=== PATIENT | male | born 1940 | race Caucasian/White ===

== ENCOUNTER 2016-06-08 09:27 | Inpatient (IN) | payer MEDICARE, BC ==
[2016-06-08 10:21] LABS: APPEARANCE,URINE CLEAR; BILIRUBIN,URINE NEGATIVE (NEGATIVE); GLUCOSE, URINE NEGATIVE (NEGATIVE); KETONES,URINE NEGATIVE (NEGATIVE); LEUKOCYTE ESTERASE,URINE NEGATIVE (NEGATIVE); NITRITE,URINE NEGATIVE (NEGATIVE); PROTEIN,URINE 30 mg/dL (NEGATIVE); URINE SPECIFIC GRAVITY 1.024; UROBILINOGEN,URINE NEGATIVE mg/dL (<2.0)
[2016-06-08] MEDS ORDERED: NORMAL SALINE 1000 ML 1,000 ML IV ONE (10:37)
[2016-06-08] MEDS ORDERED: PANTOPRAZOLE SODIUM 40 MG VIAL IV ONE (10:37)
[2016-06-08] MEDS ORDERED: PANTOPRAZOLE SODIUM 40 MG VIAL IV PRN ×2 (10:38→13:10)
--- NOTE | 2016-06-08 10:41 | ER Document Report ---
ED General - General Chief Complaint: Bloody Stools Stated Complaint: BLOOD IN STOOL Time seen by provider: 10:39 Mode of Arrival: Ambulatory Information source: Patient Notes: 75-year-old male with 4 episodes of bright red and dark red rectal bleeding this morning. Patient reports he had a sensation of abdominal cramping and fullness in the epigastric area yesterday afternoon followed by nausea and dry heaves but denies any hematemesis or melena. Patient reports history of GI bleed last year which required admission support for laparotomy what sounds like repair gastric ulcer he also gallbladder removed at that time. He reports history of atrial fibrillation and has pacemaker placement says he is on no anticoagulation now. He denies alcohol use or nonsteroidal use. He reports a sensation dizziness and lightheadedness with standing this morning Physical Exam: General: Alert, appears well. HEENT: Normocephalic. Atraumatic. PERRLA. Extraocular movements intact. Oropharynx clear. Neck: Supple. Non-tender. Respiratory: No respiratory distress. Clear and equal breath sounds bilaterally. Cardiovascular: Regular rate and rhythm. Abdominal: Normal Inspection. Soft, non-tender. No distension. Normal Bowel Sounds. Rectal exam shows no hemorrhoids or fissures Back: Non-tender. No deformity or step off. Extremities: Moves all four extremities. Upper extremities: Normal inspection. Non-tender. Normal color. Normal ROM. Normal temperature. Lower extremities: Normal inspection. Non-tender. No edema. Normal color. Normal ROM. Normal temperature. 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 Normal Mood. Skin: Warm. Dry. Normal color. TRAVEL OUTSIDE OF THE [place] IN LAST 30 DAYS: No - Related Data Allergies/Adverse Reactions: No Known Allergies Allergy (Verified 12/02/15 17:13) Past Medical History - Social History Smoking Status: Former Smoker Family History: Hypertension - Past Medical History Cardiac Medical History: Reports: Hx Atrial Fibrillation, Hx Coronary Artery Disease, Hx Heart Attack, Hx Hypercholesterolemia, Hx Heart Murmur - Mitral regurgitation Denies: Hx Hypertension Pulmonary Medical History: Reports: Hx COPD Denies: Hx Asthma, Hx Bronchitis, Hx Pneumonia Neurological Medical History: Reports: Hx Cerebrovascular Accident - INTERNAL BLEED IN 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 Denies: Hx Seizures GI Medical History: Denies: Hx Hepatitis, Hx Hiatal Hernia, Hx Ulcer Musculoskeltal Medical History: Reports Hx Arthritis, Reports Hx Gout Infectious Medical History: Denies: Hx Hepatitis Past Surgical History: Reports: Hx Abdominal Surgery - peg, Hx Cardiac Surgery - pacer, Hx Gastric Bypass Surgery, Hx Orthopedic Surgery - knee, Hx Tonsillectomy. Denies: Hx Open Heart Surgery, Hx Pacemaker - Immunizations Hx Diphtheria, Pertussis, Tetanus Vaccination: Yes Hx Pneumococcal Vaccination: 04/18/15 Review of Systems - Review of Systems Constitutional: denies: Chills, Fever EENT: denies: Ear pain, Throat pain Cardiovascular: denies: Chest pain, Dyspnea Respiratory: denies: Cough, Short of breath Gastrointestinal: See HPI Genitourinary: denies: Burning, Dysuria Musculoskeletal: denies: Back pain, Muscle pain Skin: denies: Rash Hematologic/Lymphatic: denies: Swollen glands Neurological/Psychological: denies: Weakness, Numbness Physical Exam - Vital signs Vitals: Temp Pulse Resp BP Pulse Ox 97.4 F 81 16 98/59 L 97 06/08/16 09:33 06/08/16 09:33 06/08/16 09:33 06/08/16 09:33 06/08/16 09:33 Course - Re-evaluation Re-evalutation: 06/08/16 11:51 Patient remains hemodynamically stable during his stay in emergency department he has had no abdominal pain, vomiting, chest pain, or shortness of breath. Patient started on IV per tonics and IV fluids but does not require transfusion now. GI coverage is available. Have discussed case with Dr. Pichardo hospitalist internal medicine service for admission - Vital Signs Vital signs: Temp Pulse Resp BP Pulse Ox 97.4 F 81 23 H 108/79 98 06/08/16 09:33 06/08/16 09:33 06/08/16 11:01 06/08/16 11:01 06/08/16 10:31 - Laboratory Result Diagrams: 06/08/16 10:20 06/08/16 10:20 Laboratory results interpreted by me: 06/08/16 06/08/16 06/08/16 09:53 10:20 10:20 RBC 4.25 L Hgb 12.4 L RDW 16.5 H Seg Neutrophils % 79.8 H Absolute Neutrophils 8.3 H PT Potassium 5.2 H BUN 50 H Creatinine 1.42 H Est GFR ( Amer) 59 L Est GFR (Non-Af Amer) 48 L Glucose 175 H Urine Protein 30 H 06/08/16 10:20 RBC Hgb RDW Seg Neutrophils % Absolute Neutrophils PT 15.8 H Potassium BUN Creatinine Est GFR ( Amer) Est GFR (Non-Af Amer) Glucose Urine Protein - Diagnostic Test Radiology reviewed: Image reviewed, Reports reviewed - EKG Interpretation by Me Additional EKG results interpreted by me: 06/08/16 11:49 EKG reviewed by myself shows atrial fibrillation at a ventricular rate of 72 with inverted T waves in lead 1L and V2 through V5 similar in morphology to . Patient also has occasional electronic ventricular paced beats Discharge - Discharge Clinical Impression: GI bleed Qualifiers: GI bleed type/associated pathology: melena Qualified Code(s): K92.1 - Melena Condition: Fair Disposition: ADMITTED INPATIENT Unit Admitted: Medical Floor
[2016-06-08 10:48] LABS: ABSOLUTE LYMPHOCYTES (AUTO) 1.5 10^3/uL (0.5-4.7); ABSOLUTE MONOCYTES (AUTO) 0.6 10^3/uL (0.1-1.4); ABSOLUTE NEUT (AUTO) 8.3 10^3/uL (1.7-8.2); BASOPHILS % (AUTO) 0.3 % (0-2); EOSINOPHILS % (AUTO) 0.1 % (0-6); HEMATOCRIT 37.9 % (37.9-51.0); HEMOGLOBIN 12.4 g/dL (13.5-17.0); HGB HCT DIFFERENCE -0.7; LYMPHOCYTES % (AUTO) 14.2 % (13-45); MEAN CORPUSCULAR HEMOGLOBIN 29.3 pg (27.0-33.4); MEAN CORPUSCULAR HGB CONC 32.8 g/dL (32.0-36.0); MEAN CORPUSCULAR VOLUME 89 fl (80-97); MONOCYTES % (AUTO) 5.6 % (3-13); RED BLOOD COUNT 4.25 10^6/uL (4.35-5.55); RED CELL DISTRIBUTION WIDTH 16.5 % (11.5-14.0); SEGMENTED NEUTROPHILS % (AUTO) 79.8 % (42-78); WHITE BLOOD COUNT 10.4 10^3/uL (4.0-10.5)
[2016-06-08 11:00] LABS: PROTHROMBIN TIME 15.8 SEC (11.4-15.4)
[2016-06-08 11:01] LABS: ALANINE AMINOTRANSFERASE 28 U/L (21-72); ALBUMIN 3.5 g/dL (3.5-5.0); ALKALINE PHOSPHATASE 104 U/L (38-126); ANION GAP 14 (5-19); ASPARTATE AMINO TRANSFERASE 23 U/L (17-59); BILIRUBIN,TOTAL 1.2 mg/dL (0.2-1.3); BLOOD UREA NITROGEN 50 mg/dL (7-20); CALCIUM 9.3 mg/dL (8.4-10.2); CARBON DIOXIDE 22 mmol/L (22-30); CHLORIDE 105 mmol/L (98-107); CREATININE RESULT 1.42 mg/dL (0.52-1.25); GLUCOSE 175 mg/dL (75-110); PARTIAL THROMBOPLASTIN TIME 29.8 SEC (23.5-35.8); POTASSIUM 5.2 mmol/L (3.6-5.0); SODIUM 141.2 mmol/L (137-145); TOTAL PROTEIN 6.6 g/dL (6.3-8.2)
[2016-06-08 11:02] LABS: MAGNESIUM 1.9 mg/dL (1.6-2.3)
--- NOTE | 2016-06-08 12:02 | EKG REPORT ---
SEVERITY:- ABNORMAL ECG - AFIB/FLUT AND V-PACED COMPLEXES NONSPECIFIC IVCD WITH LAD : Confirmed by: Lakisha Cannon MD 08-Jun-2016 12:01:50
[2016-06-08] MEDS ORDERED: ACETAMINOPHEN 325 MG TABLET PO PRN (12:59)
[2016-06-08] MEDS ORDERED: ONDANSETRON HCL INJ/PF 4 MG/2 ML SDV IV PRN (13:04)
[2016-06-08] MEDS: RINGERS SOLUTION,LACTATED 1,000 ML IV PRN ×2 (14:20→22:39)
--- NOTE | 2016-06-08 14:22 | PDOC CONSULTATION ---
Consultation Consult Date: 06/08/16 Attending physician:: GEMINI RIOJAS Consult reason:: GI bleed. History of Present Illness Admission Date/PCP: GEOVANY STRATTON MD History of Present Illness: OTTO TAYLOR is a 75 year old male I been asked to see this patient has been admitted through the ED. I did see him approximately 2 months ago. At that time he had an upper endoscopy done. Small anastomotic ulcer was noted. He was subsequently discharged. 2 months prior to that he had been seen by one of the surgeons. Repeat EGD was done. He 's had a gastric bypass. states that he presented with some blood in his stools. He describes it as being dark red. He denies any associated syncope. His hemoglobin is stable. He is being admitted to rule out for further GI bleeding. Patient denies any chest pain or shortness of breath. Previous upper endoscopy findings noted. He states he has not had a recent colonoscopy. Past Medical History Cardiac Medical History: Reports: Atrial Fibrillation, Coronary Artery Disease, Myocardial Infarction, Hyperlipidema, Heart Murmur - Mitral regurgitation Denies: Hypertension Pulmonary Medical History: Reports: Chronic Obstructive Pulmonary Disease (COPD) Denies: Asthma, Bronchitis, Pneumonia Neurological Medical History: Denies: Seizures GI Medical History: Denies: Hepatitis, Hiatal Hernia Musculoskeltal Medical History: Reports: Arthritis, Gout Hematology: Denies: Anemia, Sickle Cell Disease Past Surgical History Past Surgical History: Reports: Gastric Bypass Surgery, Orthopedic Surgery - knee, Tonsillectomy Denies: Pacemaker Social History Smoking Status: Former Smoker Frequency of Alcohol Use: None Hx Recreational Drug Use: No Drugs: None Hx Prescription Drug Abuse: No Family History Family History: Hypertension Parental Family History Reviewed: Yes Children Family History Reviewed: Unknown Sibling(s) Family History Reviewed.: Unknown Medication/Allergy Home Medications: Fluoxetine HCl [Prozac 20 mg Capsule] 10 mg PO DAILY 05/18/12 Simvastatin [Zocor 80 mg Tablet] 40 mg PO QHS 05/18/12 Finasteride 5 mg PO DAILY 12/04/15 Metoprolol Succinate [Toprol Xl] 25 mg PO DAILY 12/04/15 Colchicine [Colchicine 0.6 mg Tablet] 1 tab PO DAILY 01/24/16 Ferrous Sulfate [Iron] 325 mg PO DAILY 06/08/16 Omeprazole 40 mg PO DAILY 06/08/16 Allergies/Adverse Reactions: No Known Allergies Allergy (Verified 12/02/15 17:13) Review of Systems Constitutional: ABSENT: fever(s), headache(s), night sweats, weakness Eyes: ABSENT: visual disturbances Ears: ABSENT: hearing changes Nose, Mouth, and Throat: ABSENT: mouth pain Cardiovascular: ABSENT: chest pain, orthropnea, palpitations Respiratory: ABSENT: dyspnea, hemoptysis Gastrointestinal: PRESENT: hematochezia, melena. ABSENT: diarrhea, dysphagia, nausea, vomiting Genitourinary: ABSENT: dysuria, hematuria Musculoskeletal: ABSENT: deformity Integumentary: ABSENT: lesions, pruritus Neurological: ABSENT: numbness, paresthesias, syncope, tingling, tremor(s), vertigo Endocrine: ABSENT: polydipsia, polyphagia, polyuria Allergic/Immunologic: ABSENT: seasonal rhinorrhea Physical Exam Vital Signs: Temp Pulse Resp BP Pulse Ox 97.4 F 81 21 H 117/72 98 06/08/16 09:33 06/08/16 09:33 06/08/16 14:01 06/08/16 14:01 06/08/16 14:01 Intake & Output 06/07/16 06/08/16 06/09/16 06:59 06:59 06:59 Weight 63.6 kg General appearance: PRESENT: no acute distress, well-developed, well-nourished Head exam: PRESENT: atraumatic, normocephalic Eye exam: PRESENT: EOMI, PERRLA. ABSENT: nystagmus, periorbital swelling, scleral icterus Mouth exam: PRESENT: moist Throat exam: ABSENT: tonsillar exudate, tonsillogmegaly Neck exam: ABSENT: meningismus, tenderness, thyromegaly Respiratory exam: PRESENT: clear to auscultation ayanna, symmetrical. ABSENT: tachypnea Cardiovascular exam: PRESENT: RRR, +S1, +S2. ABSENT: gallop GI/Abdominal exam: PRESENT: soft. ABSENT: Lucero's sign, rebound, rigid, tenderness Extremities exam: ABSENT: joint swelling Neurological exam: PRESENT: alert, awake, oriented to time, oriented to situation, CN II-XII grossly intact Psychiatric exam: PRESENT: appropriate affect Skin exam: PRESENT: normal color. ABSENT: mottled, pallor, petechiae, urticaria , vesicles Results Laboratory Results: 06/08/16 10:20 06/08/16 10:20 06/08/16 06/08/16 06/08/16 09:53 10:00 10:20 WBC 10.4 RBC 4.25 L Hgb 12.4 L Hct 37.9 MCV 89 MCH 29.3 MCHC 32.8 RDW 16.5 H Plt Count 191 Seg Neutrophils % 79.8 H Lymphocytes % 14.2 Monocytes % 5.6 Eosinophils % 0.1 Basophils % 0.3 Absolute Neutrophils 8.3 H Absolute Lymphocytes 1.5 Absolute Monocytes 0.6 Absolute Eosinophils 0.0 Absolute Basophils 0.0 Sodium Potassium Chloride Carbon Dioxide Anion Gap BUN Creatinine Est GFR ( Amer) Est GFR (Non-Af Amer) Glucose Calcium Magnesium Total Bilirubin AST ALT Alkaline Phosphatase Total Protein Albumin Lipase Urine Color YELLOW Urine Appearance CLEAR Urine pH 5.0 Ur Specific [place] 1.024 Urine Protein 30 H Urine Glucose (UA) NEGATIVE Urine Ketones NEGATIVE Urine Blood NEGATIVE Urine Nitrite NEGATIVE Ur Leukocyte Esterase NEGATIVE Urine WBC (Auto) 1 Stool Occult Blood POSITIVE Blood Type Antibody Screen 06/08/16 06/08/16 06/08/16 10:20 10:20 10:26 WBC RBC Hgb Hct MCV MCH MCHC RDW Plt Count Seg Neutrophils % Lymphocytes % Monocytes % Eosinophils % Basophils % Absolute Neutrophils Absolute Lymphocytes Absolute Monocytes Absolute Eosinophils Absolute Basophils Sodium 141.2 Potassium 5.2 H Chloride 105 Carbon Dioxide 22 Anion Gap 14 BUN 50 H Creatinine 1.42 H Est GFR ( Amer) 59 L Est GFR (Non-Af Amer) 48 L Glucose 175 H Calcium 9.3 Magnesium 1.9 Total Bilirubin 1.2 AST 23 ALT 28 Alkaline Phosphatase 104 Total Protein 6.6 Albumin 3.5 Lipase 193.0 Urine Color Urine Appearance Urine pH Ur Specific [place] Urine Protein Urine Glucose (UA) Urine Ketones Urine Blood Urine Nitrite Ur Leukocyte Esterase Urine WBC (Auto) Stool Occult Blood Blood Type O POSITIVE Antibody Screen NEGATIVE Impressions: Acute Abdomen Series 06/08/16 10:36 IMPRESSION: No acute cardiopulmonary changes No subdiaphragmatic free air. Prior cholecystectomy and gastric bypass. Few borderline distended small bowel loops in the mid and lower abdomen, nonspecific bowel gas pattern Assessment & Plan - Diagnosis (1) GI bleed Plan: Question location of bleeding. Previous ulcers that were noted likely cannot contribute to the patient's degree of bleeding. His hemoglobin is stable. However colonoscopy is probably worthwhile to do. Risks benefits alternatives of the procedure including risks of bleeding, perforation requiring surgery I explained to the patient detail informed consent was obtained further recommendations will be based upon findings. The other possible location of the bleed is needed stomach. Start him on a PPI. If colonoscopy is negative doesn't perhaps repeat upper endoscopy can be done with perhaps advancement of the scope to the [place] stomach through the gastrojejunostomy but this may not be possible. - Time Time Spent: 50 to 70 Minutes
[2016-06-08] MEDS ORDERED: MAGNESIUM CITRATE 296 ML BOTTLE PO ONE (15:00)
[2016-06-08] MEDS ORDERED: BISACODYL 5 MG TABEC PO ONE (15:00)
--- NOTE | 2016-06-08 18:05 | PDOC H&P ---
History of Present Illness Admission Date/PCP: 06/08/16 12:59 GEOVANY STRATTON MD Patient complains of: Bloody stools History of Present Illness: Presents to the emergency department from home with sudden onset of bloody stools starting during the night and continuing with operative 5 stools of bright red blood and some formed elements as well. It all started yesterday with some epigastric discomfort described as pressure and bloating just below the xiphoid process. He denies heartburn-like symptoms. He denies chest pain or palpitations. He does not take aspirin or other NSAIDs due to history of an intracranial hemorrhage. He denies BC powders and Goody's powders. He reports being in his usual state of health prior to this episode. He has a history of Lizeth-en-Y surgery in 2006 for weight loss that was successful. However since that time he has had evidence of peptic ulcer disease and required surgical intervention as well as endoscopic intervention on previous occasions in 2016. He has previously required transfusion of packed red blood cells as a result. He cannot remember his last colonoscopy but states his last endoscopy was during one of those hospitalizations in the fall of 2016. Evaluation in the emergency department shows hemoglobin stable at 12 hour he is rapidly guaiac positive and grossly melanotic on rectal exam per the ER physician. Given his history we were asked to admit for further investigation and management. 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 Denies: Seizures GI Medical History: Denies: Hepatitis, Hiatal Hernia Musculoskeltal Medical History: Reports: Arthritis, Gout Psychiatric Medical History: Denies: Depression Hematology: Denies: Anemia, Sickle Cell Disease Past Surgical History Past Surgical History: Reports: Appendectomy, Cholecystectomy, Gastric Bypass Surgery, Orthopedic Surgery - knee, Tonsillectomy Denies: Pacemaker Social History Smoking Status: Former Smoker Number of Years Smokin Last Time Smoked: 04/18/80 Frequency of Alcohol Use: None Hx Recreational Drug Use: No Drugs: None Hx Prescription Drug Abuse: No - Advance Directive Resuscitation Status: Full Code Family History Family History: Hypertension Parental Family History Reviewed: Yes Children Family History Reviewed: Yes Sibling(s) Family History Reviewed.: Yes Medication/Allergy Home Medications: Fluoxetine HCl [Prozac 20 mg Capsule] 10 mg PO DAILY 05/18/12 Simvastatin [Zocor 80 mg Tablet] 40 mg PO QHS 05/18/12 Finasteride 5 mg PO DAILY 12/04/15 Metoprolol Succinate [Toprol Xl] 25 mg PO DAILY 12/04/15 Colchicine [Colchicine 0.6 mg Tablet] 1 tab PO DAILY 01/24/16 Ferrous Sulfate [Iron] 325 mg PO DAILY 06/08/16 Omeprazole 40 mg PO DAILY 06/08/16 Allergies/Adverse Reactions: No Known Allergies Allergy (Verified 12/02/15 17:13) Review of Systems Constitutional: ABSENT: chills, fever(s), headache(s), weight gain, weight loss Eyes: ABSENT: visual disturbances Ears: ABSENT: hearing changes Cardiovascular: ABSENT: chest pain, dyspnea on exertion, edema, orthropnea, palpitations Respiratory: ABSENT: cough, hemoptysis Gastrointestinal: PRESENT: diarrhea, hematochezia. ABSENT: abdominal pain, constipation, hematemesis, nausea, vomiting Genitourinary: ABSENT: dysuria, hematuria Musculoskeletal: ABSENT: joint swelling Integumentary: ABSENT: rash, wounds Neurological: ABSENT: abnormal gait, abnormal speech, confusion, dizziness, focal weakness, syncope Psychiatric: ABSENT: anxiety, depression Endocrine: ABSENT: cold intolerance, heat intolerance, polydipsia, polyuria Hematologic/Lymphatic: ABSENT: easy bleeding, easy bruising Physical Exam Vital Signs: Temp Pulse Resp BP Pulse Ox 98.5 F 81 18 109/65 100 06/08/16 15:48 06/08/16 15:48 06/08/16 15:48 06/08/16 15:48 06/08/16 15:48 Intake & Output 06/07/16 06/08/16 06/09/16 06:59 06:59 06:59 Intake Total 1115 Balance 1115 PHYSICAL EXAM GENERAL: NAD; well developed, well nourished; no obese; alert and oriented to person, place, time, situation HEENT: normocephalic, atraumatic; EOMI, PERRLA, no conjunctival injection, no scleral icterus; oral mucosa dry with a thin white coat; neck supple, no LAD, normal ROM RESPIRATORY: no accessory muscle use, no increased WOB, good air entry bilaterally; no wheezes, rales, rhonchi; no inspiratory crackles CARDIO: no JVD; irregularly irregular; soft holosystolic murmur; no tachycardia VASCULAR: no carotid bruit; no abdominal bruit; no pallor; 2+ radial, DP pulse ; normal capillary refill GI: soft; nondistended; normal bowel sounds; no hepato spleno megaly; no rebound, rigidity, guarding; nontender to deep palpation throughout all 4 quadrants NEURO: normal patella reflexes; normal sensation; normal motor function; no gait abnls; no dysarthria; no nystagmus; tongue protrudes midline; MSK: 5/5 strength; normal ROM hips; ambulatory without assistance; no tenderness EXTREMITIES: no calf tender; no palpable cords in calf; no clubbing, cyanosis , pedal edema PSYCH: normal affect, normal mood SKIN: warm; moist; no petechiae; no telengectasias; no jaundice; no rash Results Laboratory Results: Labs reviewed, hemoglobin stable at 12, INR is normal at 1.2, chemistries show mild elevation of his potassium of 5.2 and BUN and creatinine 50 and 1.4 Impressions: Acute Abdomen Series 06/08/16 10:36 IMPRESSION: No acute cardiopulmonary changes No subdiaphragmatic free air. Prior cholecystectomy and gastric bypass. Few borderline distended small bowel loops in the mid and lower abdomen, nonspecific bowel gas pattern Status: Imported from PACS - Agree with radiology Assessment & Plan - Diagnosis (1) GI bleed Qualifiers: GI bleed type/associated pathology: unspecified gastrointestinal hemorrhage type Qualified Code(s): K92.2 - Gastrointestinal hemorrhage, unspecified Is this a current diagnosis for this admission?: YesPlan: Unclear etiology, given his history is clearly at risk for upper GI bleed however he also has not undergone colonoscopy and recent history and therefore at risk for diverticular bleed. Continue PPI therapy started in the emergency department, continue to trend H&H, I discussed the case with Dr. Bruce, gastroenterology will see in consultation. (2) Acute renal insufficiency Is this a current diagnosis for this admission?: YesPlan: Gently hydrate and monitor. He is not far off from his baseline which appears to be around 1.3 (3) Atrial fibrillation Qualifiers: Atrial fibrillation type: chronic Qualified Code(s): I48.2 - Chronic atrial fibrillation Is this a current diagnosis for this admission?: YesPlan: Rate controlled, continue current regimen. Hold anticoagulation due to history of intracranial hemorrhage and current GI bleed (4) Anemia Qualifiers: Anemia type: iron deficiency Iron deficiency anemia type: unspecified iron deficiency Qualified Code(s): D50.9 - Iron deficiency anemia, unspecified Is this a current diagnosis for this admission?: YesPlan: Risk and benefits of transfusion were described with the patient and he is agreeable to blood products if needed. He has tolerated transfusion in the past without evidence of reaction. (5) Coronary artery disease Qualifiers: Coronary Disease-Associated Artery/Lesion type: [place] artery [place] vs. transplanted heart: [place] heart Associated angina: without angina Qualified Code(s): I25.10 - Atherosclerotic heart disease of [place] coronary artery without angina pectoris Is this a current diagnosis for this admission?: YesPlan: Stable. Continue current regimen. Holding antiplatelet therapy for the reasons noted above. (6) Hyperkalemia Is this a current diagnosis for this admission?: YesPlan: Mild and chronic. Continue to monitor - Time Time Spent: Greater than 70 Minutes Medications reviewed and adjusted accordingly: Yes Anticipated discharge: Home Within: within 48 hours - Inpatient Certification Medical Necessity: Significant Comorbidiites Make Outpatient Treatment Too Risky , Need Close Monitoring Due to Risk of Patient Decompensation
[2016-06-08 18:51] LABS: HEMATOCRIT 31.5 % (37.9-51.0); HEMOGLOBIN 10.6 g/dL (13.5-17.0); HGB HCT DIFFERENCE 0.3; MEAN CORPUSCULAR HEMOGLOBIN 29.8 pg (27.0-33.4); MEAN CORPUSCULAR HGB CONC 33.7 g/dL (32.0-36.0); MEAN CORPUSCULAR VOLUME 88 fl (80-97); RED BLOOD COUNT 3.57 10^6/uL (4.35-5.55); RED CELL DISTRIBUTION WIDTH 16.1 % (11.5-14.0); WHITE BLOOD COUNT 9.7 10^3/uL (4.0-10.5)
[2016-06-08] MEDS ORDERED: (PENDING PHARMACY ID) (Simvastatin [Zocor 80 Mg Tablet] 40 MG) PO SCH (22:00)
[2016-06-08] MEDS: SIMVASTATIN 40 MG TABLET PO SCH (22:38)
[2016-06-08] MEDS: NORMAL SALINE 100 ML with PANTOPRAZOLE SODIUM 80 MG IV PRN ×2 (22:38)
[2016-06-09 00:25] LABS: HEMOGLOBIN 9.8 g/dL (13.5-17.0); HGB HCT DIFFERENCE 1.4; MEAN CORPUSCULAR HEMOGLOBIN 30.6 pg (27.0-33.4); MEAN CORPUSCULAR VOLUME 88 fl (80-97); RED CELL DISTRIBUTION WIDTH 15.9 % (11.5-14.0); WHITE BLOOD COUNT 9.4 10^3/uL (4.0-10.5)
[2016-06-09] MEDS: RINGERS SOLUTION,LACTATED 1,000 ML IV PRN ×2 (05:16→11:57)
[2016-06-09] MEDS: NORMAL SALINE 100 ML with PANTOPRAZOLE SODIUM 80 MG IV PRN ×2 (07:41)
[2016-06-09] MEDS ORDERED: MAGNESIUM CITRATE 296 ML BOTTLE PO ONE (08:30)
[2016-06-09 08:56] LABS: HEMATOCRIT 25.8 % (37.9-51.0); HGB HCT DIFFERENCE 1.2; MEAN CORPUSCULAR HEMOGLOBIN 30.4 pg (27.0-33.4); MEAN CORPUSCULAR HGB CONC 34.8 g/dL (32.0-36.0); MEAN CORPUSCULAR VOLUME 88 fl (80-97); RED BLOOD COUNT 2.95 10^6/uL (4.35-5.55); RED CELL DISTRIBUTION WIDTH 15.5 % (11.5-14.0); WHITE BLOOD COUNT 7.6 10^3/uL (4.0-10.5)
[2016-06-09] MEDS ORDERED: METOPROLOL SUCCINATE 25 MG TAB.SR.24H PO SCH (10:00)
[2016-06-09] MEDS ORDERED: FLUOXETINE HCL 20 MG CAPSULE PO SCH (10:00)
[2016-06-09] MEDS ORDERED: ONDANSETRON HCL INJ/PF 4 MG/2 ML SDV ONE (11:48)
[2016-06-09] MEDS ORDERED: MIDAZOLAM 2 MG/2 ML INJ ONE (11:48)
[2016-06-09] MEDS ORDERED: PROMETHAZINE HCL INJ 25 MG/1 ML VIAL ONE (11:48)
[2016-06-09] MEDS ORDERED: NALOXONE HCL INJ/PF 0.4 MG/1 ML SDV ONE (11:48)
[2016-06-09] MEDS ORDERED: DIPHENHYDRAMINE HCL 50 MG/ML VIAL ONE (11:48)
[2016-06-09] MEDS ORDERED: FENTANYL CITRATE INJ/PF 100 MCG/2 ML AMPUL ONE (11:49)
[2016-06-09] MEDS ORDERED: GLUCAGON,HUMAN RECOMB 1 MG INJ ONE (11:49)
[2016-06-09] MEDS ORDERED: FLUMAZENIL INJ 0.5 MG/5 ML VIAL IV ONE (11:49)
[2016-06-09] MEDS ORDERED: EPINEPHRINE INJ 1 MG/10 ML DISP.SYRIN ONE (11:49)
--- NOTE | 2016-06-09 12:51 | Operative Report ---
Operative Report DATE OF SURGERY: 06/09/16 Operative Report: The risks, and if it's and alternatives of the procedure including risks of bleeding, perforation requiring surgery are explained to the patient in detail and informed consent is obtained. The patient is brought to the endoscopy suite and placed in a left, lateral decubital position. Timeout is called. Conscious sedation medications administered. A rectal examination was done which did not reveal any masses, tears or fissures. An Olympus videoscope was inserted into the patient's rectum. It Really advanced all the way to the cecum. The cecum was identified by the usual anatomical landmarks including the ileocecal valve as well as the appendiceal office. Photodocumentation is obtained. Prep is good. Scope was then sequentially pulled back creative rest segments of the colon including the ascending colon, hepatic flexure, transverse colon, splenic flexure, descending colon and finally into the rectosigmoid colon. Mucosa does otherwise appeared to be normal. Retroflexion maneuvers performed. PREOPERATIVE DIAGNOSIS: has had a gastrojejunostomy bypass in the past. His upper endoscopy 2 months ago revealed a small anastomotic ulcer. Patient was complaining of some rectal bleeding. A colonoscopy is indicated to make sure there is no lower source of bleeding. POSTOPERATIVE DIAGNOSIS: Diverticulosis. Internal hemorrhoids. Polyp is removed via biopsy forceps. Could've had limited diverticular bleeding. If patient continues to bleed a bleeding scan can be done to determine if he is bleeding from the anastomosis versus the [place] stomach which has been bypassed. Patient does have both left and right sided diverticulosis which could probably explain the reason for why he had bleeding. OPERATION: Colonoscopy with biopsy SURGEON: GEMINI RIOJAS ANESTHESIA: Moderate Sedation - 2 mg Versed, 25 g of fentanyl. Conscious sedation monitoring time 30 minutes. TISSUE REMOVED OR ALTERED: Small Specimen retrieved. Following biopsy. COMPLICATIONS: None. ESTIMATED BLOOD LOSS: none. INTRAOPERATIVE FINDINGS: As noted above. PROCEDURE: Patient tolerated the procedure well. No immediate postprocedure complications are noted. Patient sent back to his room in good condition. He can resume his diet. Resume activity level. Continue to monitor for bleeding. Transfuse if necessary. No further bleeding would consider bleeding scan. Differential would include diverticular bleeding, or perhaps bleeding from the [place] portion of the stomach, and has been bypass.
--- NOTE | 2016-06-09 14:38 | PDOC PROGRESS REPORT ---
Subjective Progress Note for:: 06/09/16 Subjective:: Reason for visit: Follow-up GI bleed Hospital course: Presents to the emergency department from home with sudden onset of bloody stools starting during the night and continuing with operative 5 stools of bright red blood and some formed elements as well. It all started yesterday with some epigastric discomfort described as pressure and bloating just below the xiphoid process. He denies heartburn-like symptoms. He denies chest pain or palpitations. He does not take aspirin or other NSAIDs due to history of an intracranial hemorrhage. He denies BC powders and Goody's powders. He reports being in his usual state of health prior to this episode. He has a history of Lizeth-en-Y surgery in 2006 for weight loss that was successful. However since that time he has had evidence of peptic ulcer disease and required surgical intervention as well as endoscopic intervention on previous occasions in 2016. He has previously required transfusion of packed red blood cells as a result. He cannot remember his last colonoscopy but states his last endoscopy was during one of those hospitalizations in the fall of 2015. Evaluation in the emergency department shows hemoglobin stable at 12 hour he is rapidly guaiac positive and grossly melanotic on rectal exam per the ER physician. Given his history we were asked to admit for further investigation and management. The patient seemed well but has trended down since admission over 3 g but interestingly he states his stools are firming up and not bright red blood anymore. Furthermore he states he's had no recurrence of his epigastric discomfort. He denies chest pain, palpitations, fever, chills, nausea, vomiting , hematemesis. ROS: per HPI plus a total of 10 systems reviewed, pertinent positives and negatives noted above, remaining systems negative. Physical Exam Vital Signs: Temp Pulse Resp BP Pulse Ox 98.0 F 67 11 L 95/46 L 97 06/09/16 11:22 06/09/16 13:00 06/09/16 13:00 06/09/16 13:00 06/09/16 13:00 Intake & Output 06/08/16 06/09/16 06/10/16 06:59 06:59 06:59 Intake Total 2361 300 Balance 2361 300 Weight 64.6 kg PHYSICAL EXAM GENERAL: NAD; well developed, well nourished; no obese; alert and oriented to person, place, time, situation HEENT: normocephalic, atraumatic; no conjunctival injection, no scleral icterus ; oral mucosa dry with a thin white coat; RESPIRATORY: no accessory muscle use, no increased WOB, good air entry bilaterally; no wheezes, rales, rhonchi; no inspiratory crackles CARDIO: no JVD; irregularly irregular; soft holosystolic murmur as before; no tachycardia VASCULAR: no carotid bruit; no abdominal bruit; no pallor; 2+ radial, DP pulse ; normal capillary refill GI: soft; nondistended; normal bowel sounds; no hepato spleno megaly; no rebound, rigidity, guarding; nontender to deep palpation throughout all 4 quadrants again NEURO: normal patella reflexes; normal sensation; normal motor function; MSK: 5/5 strength; normal ROM hips; ambulatory without assistance; no tenderness EXTREMITIES: no calf tender; no palpable cords in calf; no clubbing, cyanosis , pedal edema PSYCH: normal affect, normal mood SKIN: warm; moist; no petechiae; no telengectasias; no jaundice; no rash Results Laboratory Results: 06/09/16 08:36 06/08/16 06/09/16 06/09/16 18:45 00:17 08:36 WBC 9.7 9.4 7.6 RBC 3.57 L 3.20 L 2.95 L Hgb 10.6 L 9.8 L 9.0 L Hct 31.5 L 28.0 L 25.8 L MCV 88 88 88 MCH 29.8 30.6 30.4 MCHC 33.7 35.0 34.8 RDW 16.1 H 15.9 H 15.5 H Plt Count 153 150 135 L Labs reviewed and hemoglobin is trending down Assessment & Plan - Diagnosis (1) GI bleed Qualifiers: GI bleed type/associated pathology: unspecified gastrointestinal hemorrhage type Qualified Code(s): K92.2 - Gastrointestinal hemorrhage, unspecified Is this a current diagnosis for this admission?: YesPlan: Unclear etiology, given his history is clearly at risk for upper GI bleed however he also has not undergone colonoscopy and recent history and therefore at risk for diverticular bleed. Continue PPI therapy started in the emergency department, continue to trend H&H. Anticipate endoscopy later today. (2) Acute renal insufficiency Is this a current diagnosis for this admission?: YesPlan: Continue to hydrate and monitor. He is not far off from his baseline which appears to be around 1.3 (3) Atrial fibrillation Qualifiers: Atrial fibrillation type: chronic Qualified Code(s): I48.2 - Chronic atrial fibrillation Is this a current diagnosis for this admission?: YesPlan: Rate controlled, continue current regimen. Hold anticoagulation due to history of intracranial hemorrhage and current GI bleed (4) Anemia Qualifiers: Anemia type: iron deficiency Iron deficiency anemia type: unspecified iron deficiency Qualified Code(s): D50.9 - Iron deficiency anemia, unspecified Is this a current diagnosis for this admission?: YesPlan: Acute blood loss anemia secondary to the above. Risk and benefits of transfusion were described with the patient and he is agreeable to blood products if needed. He has tolerated transfusion in the past without evidence of reaction. (5) Coronary artery disease Qualifiers: Coronary Disease-Associated Artery/Lesion type: [place] artery [place] vs. transplanted heart: [place] heart Associated angina: without angina Qualified Code(s): I25.10 - Atherosclerotic heart disease of [place] coronary artery without angina pectoris Is this a current diagnosis for this admission?: YesPlan: Stable but probably don't want his hematocrit is stable low 30 for long, if he doesn't respond with conservative measures will need to transfuse. Continue current regimen. Holding antiplatelet therapy for the reasons noted above. Place holding parameters on his beta polo. (6) Hyperkalemia Is this a current diagnosis for this admission?: YesPlan: Mild and chronic. Repeat Chem-7 in the morning - Time Time Spent with patient: 25-34 minutes
[2016-06-09] MEDS: COLCHICINE 0.6 MG TABLET PO SCH (15:50)
[2016-06-09] MEDS: FERROUS SULFATE 325 MG TABLET PO SCH (15:50)
[2016-06-09] MEDS: FLUOXETINE HCL 20 MG/5 ML UDCUP PO SCH (15:51)
[2016-06-09] MEDS: FINASTERIDE 5 MG TABLET PO SCH (15:51)
[2016-06-09] MEDS ORDERED: METOPROLOL SUCCINATE 25 MG TAB.SR.24H PO ONE (16:00)
[2016-06-09 19:47] LABS: ABSOLUTE EOSINOPHILS # (AUTO) 0.1 10^3/uL (0.0-0.6); ABSOLUTE MONOCYTES (AUTO) 0.7 10^3/uL (0.1-1.4); BASOPHILS % (AUTO) 0.4 % (0-2); EOSINOPHILS % (AUTO) 0.9 % (0-6); HEMATOCRIT 25.6 % (37.9-51.0); HEMOGLOBIN 8.8 g/dL (13.5-17.0); HGB HCT DIFFERENCE 0.8; LYMPHOCYTES % (AUTO) 25.5 % (13-45); MEAN CORPUSCULAR HGB CONC 34.3 g/dL (32.0-36.0); MEAN CORPUSCULAR VOLUME 88 fl (80-97); MONOCYTES % (AUTO) 8.5 % (3-13); RED BLOOD COUNT 2.92 10^6/uL (4.35-5.55); RED CELL DISTRIBUTION WIDTH 15.3 % (11.5-14.0); SEGMENTED NEUTROPHILS % (AUTO) 64.7 % (42-78); WHITE BLOOD COUNT 7.7 10^3/uL (4.0-10.5)
[2016-06-09] MEDS ORDERED: NORMAL SALINE 250 ML IV PRN ×2 (20:33)
--- NOTE | 2016-06-09 20:36 | Progress Note ---
Provider Note Provider Note: 06/09/2016, 8:35 PM: Checkout from daytime hospitalist revealed a cutoff criteria of hemoglobin of 9.0 for transfusion due to underlying coronary artery disease. Hemoglobin just returned 8.8. Transfusion recommended by daytime hospitalist. Per telephone conversation with patient, Patient understands the risks associated with blood product transfusion to include, but not be limited to, transfusion reaction, which can be fatal, along with hepatitis and/or HIV viruses. Discussed in lay person's terms. Patient agrees to undergo transfusion of blood products if felt necessary. Will proceed with same.
[2016-06-09] MEDS: PANTOPRAZOLE SODIUM 40 MG VIAL IV SCH (22:13)
[2016-06-09] MEDS: SIMVASTATIN 40 MG TABLET PO SCH (22:13)
[2016-06-10 04:31] LABS: ABSOLUTE EOSINOPHILS # (AUTO) 0.1 10^3/uL (0.0-0.6); ABSOLUTE LYMPHOCYTES (AUTO) 2.2 10^3/uL (0.5-4.7); ABSOLUTE MONOCYTES (AUTO) 0.6 10^3/uL (0.1-1.4); ABSOLUTE NEUT (AUTO) 4.2 10^3/uL (1.7-8.2); BASOPHILS % (AUTO) 0.7 % (0-2); EOSINOPHILS % (AUTO) 1.3 % (0-6); HEMATOCRIT 26.5 % (37.9-51.0); HEMOGLOBIN 9.1 g/dL (13.5-17.0); HGB HCT DIFFERENCE 0.8; LYMPHOCYTES % (AUTO) 30.6 % (13-45); MEAN CORPUSCULAR HEMOGLOBIN 30.1 pg (27.0-33.4); MEAN CORPUSCULAR HGB CONC 34.4 g/dL (32.0-36.0); MEAN CORPUSCULAR VOLUME 87 fl (80-97); MONOCYTES % (AUTO) 8.6 % (3-13); RED BLOOD COUNT 3.03 10^6/uL (4.35-5.55); RED CELL DISTRIBUTION WIDTH 15.7 % (11.5-14.0); SEGMENTED NEUTROPHILS % (AUTO) 58.8 % (42-78); WHITE BLOOD COUNT 7.2 10^3/uL (4.0-10.5)
[2016-06-10 04:47] LABS: ANION GAP 9 (5-19); BLOOD UREA NITROGEN 42 mg/dL (7-20); CALCIUM 8.7 mg/dL (8.4-10.2); CARBON DIOXIDE 24 mmol/L (22-30); CHLORIDE 108 mmol/L (98-107); CREATININE RESULT 1.47 mg/dL (0.52-1.25); GLUCOSE 88 mg/dL (75-110); POTASSIUM 4.4 mmol/L (3.6-5.0); SODIUM 141.2 mmol/L (137-145)
[2016-06-10] MEDS: RINGERS SOLUTION,LACTATED 1,000 ML IV PRN (09:59)
[2016-06-10] MEDS: FERROUS SULFATE 325 MG TABLET PO SCH (10:00)
[2016-06-10] MEDS: COLCHICINE 0.6 MG TABLET PO SCH (10:00)
[2016-06-10] MEDS ORDERED: METOPROLOL SUCCINATE 25 MG TAB.SR.24H PO SCH (10:00)
[2016-06-10] MEDS: PANTOPRAZOLE SODIUM 40 MG VIAL IV SCH ×2 (10:00→21:16)
[2016-06-10] MEDS: FINASTERIDE 5 MG TABLET PO SCH (10:00)
[2016-06-10] MEDS: FLUOXETINE HCL 20 MG/5 ML UDCUP PO SCH (10:52)
[2016-06-10 11:05] LABS: HEMATOCRIT 24.5 % (37.9-51.0); HEMOGLOBIN 8.5 g/dL (13.5-17.0); MEAN CORPUSCULAR HEMOGLOBIN 30.6 pg (27.0-33.4); MEAN CORPUSCULAR HGB CONC 34.6 g/dL (32.0-36.0); MEAN CORPUSCULAR VOLUME 88 fl (80-97); RED BLOOD COUNT 2.78 10^6/uL (4.35-5.55); RED CELL DISTRIBUTION WIDTH 15.8 % (11.5-14.0); WHITE BLOOD COUNT 8.7 10^3/uL (4.0-10.5)
[2016-06-10] MEDS ORDERED: NORMAL SALINE 250 ML IV PRN ×4 (11:21→18:20)
--- NOTE | 2016-06-10 12:17 | PDOC PROGRESS REPORT ---
Subjective Progress Note for:: 06/10/16 Subjective:: Patient underwent colonoscopy yesterday. He tolerated the procedure well. He had both right and left-sided diverticulosis. 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 Hemoglobin has been stable. Questionable whether he is been having some diverticula bleeding. From his history it is painless rectal bleeding so that could possibly be what's going on. Have blood transfusion last night with a hemoglobin of 8.8. No significant overnight events. He denies any fevers chills night sweats His diet can be advanced No postprocedure problems of abdominal pain or bleeding. Physical Exam Vital Signs: Temp Pulse Resp BP Pulse Ox 97.9 F 64 16 88/56 L 99 06/10/16 08:03 06/10/16 08:03 06/10/16 08:03 06/10/16 08:03 06/10/16 08:03 Intake & Output 06/09/16 06/10/16 06/11/16 06:59 06:59 06:59 Intake Total 2361 3967 Balance 2361 3967 Weight 64.6 kg 66 kg General appearance: PRESENT: no acute distress, cooperative Head exam: PRESENT: atraumatic, normocephalic Eye exam: PRESENT: EOMI, PERRLA. ABSENT: nystagmus, periorbital swelling, scleral icterus Mouth exam: PRESENT: moist Throat exam: ABSENT: tonsillar exudate, tonsillogmegaly Neck exam: ABSENT: meningismus, tenderness, thyromegaly Respiratory exam: PRESENT: clear to auscultation ayanna, symmetrical, unlabored. ABSENT: accessory muscle use Cardiovascular exam: PRESENT: RRR, +S1, +S2. ABSENT: rubs Pulses: PRESENT: normal carotid pulses GI/Abdominal exam: PRESENT: soft. ABSENT: ascites, rebound, rigid, tenderness Gentrourinary exam: ABSENT: lesions Extremities exam: ABSENT: joint swelling Musculoskeletal exam: PRESENT: full ROM Neurological exam: PRESENT: alert, oriented to person, oriented to place, oriented to time, oriented to situation, reflexes normal, CN II-XII grossly intact Psychiatric exam: PRESENT: appropriate affect Skin exam: PRESENT: normal color. ABSENT: mottled, pallor, petechiae, urticaria , vesicles Results Laboratory Results: 06/10/16 10:42 06/10/16 04:06 02/06/10/16 06/10/16 19:33 04:06 04:06 WBC 7.7 7.2 RBC 2.92 L 3.03 L Hgb 8.8 L 9.1 L Hct 25.6 L 26.5 L MCV 88 87 MCH 30.0 30.1 MCHC 34.3 34.4 RDW 15.3 H 15.7 H Plt Count 136 L 122 L Seg Neutrophils % 64.7 58.8 Lymphocytes % 25.5 30.6 Monocytes % 8.5 8.6 Eosinophils % 0.9 1.3 Basophils % 0.4 0.7 Absolute Neutrophils 5.0 4.2 Absolute Lymphocytes 2.0 2.2 Absolute Monocytes 0.7 0.6 Absolute Eosinophils 0.1 0.1 Absolute Basophils 0.0 0.0 Sodium 141.2 Potassium 4.4 Chloride 108 H Carbon Dioxide 24 Anion Gap 9 BUN 42 H Creatinine 1.47 H Est GFR ( Amer) 56 L Est GFR (Non-Af Amer) 47 L Glucose 88 Calcium 8.7 06/10/16 10:42 WBC 8.7 RBC 2.78 L Hgb 8.5 L Hct 24.5 L MCV 88 MCH 30.6 MCHC 34.6 RDW 15.8 H Plt Count 138 L Seg Neutrophils % Lymphocytes % Monocytes % Eosinophils % Basophils % Absolute Neutrophils Absolute Lymphocytes Absolute Monocytes Absolute Eosinophils Absolute Basophils Sodium Potassium Chloride Carbon Dioxide Anion Gap BUN Creatinine Est GFR ( Amer) Est GFR (Non-Af Amer) Glucose Calcium Impressions: Acute Abdomen Series 06/08/16 10:36 IMPRESSION: No acute cardiopulmonary changes No subdiaphragmatic free air. Prior cholecystectomy and gastric bypass. Few borderline distended small bowel loops in the mid and lower abdomen, nonspecific bowel gas pattern Assessment & Plan - Diagnosis (1) GI bleed Qualifiers: GI bleed type/associated pathology: unspecified gastrointestinal hemorrhage type Qualified Code(s): K92.2 - Gastrointestinal hemorrhage, unspecified Is this a current diagnosis for this admission?: Yes (2) GI bleed Qualifiers: GI bleed type/associated pathology: melena Qualified Code(s): K92.1 - Melena Plan: ? possible diverticular bleeding previous history of ulcer repair continue to follow had transfusion over night biopsies show melanosis coli may need bleeding scan if further bleeding suspect may be having episodes of diverticular bleeding since this are painless episodes - Time Time Spent with patient: 15-24 minutes
[2016-06-10] MEDS ORDERED: 1/2 NORMAL SALINE 1,000 ML IV ONE ×2 (14:40→18:20)
--- NOTE | 2016-06-10 17:25 | PDOC PROGRESS REPORT ---
Subjective Progress Note for:: 06/10/16 Subjective:: Reason for visit: Follow-up GI bleed Hospital course: Presents to the emergency department from home with sudden onset of bloody stools starting during the night and continuing with operative 5 stools of bright red blood and some formed elements as well. It all started yesterday with some epigastric discomfort described as pressure and bloating just below the xiphoid process. He denies heartburn-like symptoms. He denies chest pain or palpitations. He does not take aspirin or other NSAIDs due to history of an intracranial hemorrhage. He denies BC powders and Goody's powders. He reports being in his usual state of health prior to this episode. He has a history of Lizeth-en-Y surgery in 2006 for weight loss that was successful. However since that time he has had evidence of peptic ulcer disease and required surgical intervention as well as endoscopic intervention on previous occasions in 2016. He has previously required transfusion of packed red blood cells as a result. He cannot remember his last colonoscopy but states his last endoscopy was during one of those hospitalizations in the fall of 2015. Evaluation in the emergency department shows hemoglobin stable at 12 hour he is rapidly guaiac positive and grossly melanotic on rectal exam per the ER physician. Given his history we were asked to admit for further investigation and management. The patient seemed well at first but has trended down since admission over 3 g and required a unit of packed red blood cells overnight. This afternoon he has had 2 bloody bowel movements again. Furthermore he denies recurrence of his epigastric discomfort. He denies chest pain, palpitations, fever, chills, nausea, vomiting, hematemesis. He reports positional dizziness and generalized weakness and fatigue, worse than his presentation. ROS: per HPI plus a total of 10 systems reviewed, pertinent positives and negatives noted above, remaining systems negative. Physical Exam Vital Signs: Temp Pulse Resp BP Pulse Ox 97.8 F 61 18 88/46 L 100 06/10/16 12:16 06/10/16 12:16 06/10/16 12:16 06/10/16 12:16 06/10/16 12:16 Intake & Output 06/09/16 06/10/16 06/11/16 06:59 06:59 06:59 Intake Total 2361 3969 670 Output Total 1 Balance 2361 3966 668 Weight 64.6 kg 66 kg PHYSICAL EXAM GENERAL: NAD; well developed, well nourished; pale-appearing; no obese; alert and oriented to person, place,, situation HEENT: normocephalic, atraumatic; no conjunctival injection, no scleral icterus ; oral mucosa moist RESPIRATORY: no accessory muscle use, no increased WOB, good air entry bilaterally; no wheezes, rales, rhonchi; no inspiratory crackles CARDIO: no JVD; irregularly irregular; soft holosystolic murmur as before; no tachycardia VASCULAR: no carotid bruit; no abdominal bruit; no pallor; 2+ radial, DP pulse ; normal capillary refill GI: soft; nondistended; normal bowel sounds; no rebound, rigidity, guarding; nontender to deep palpation throughout all 4 quadrants again; there is an obvious odor of GI bleed in the room NEURO: normal patella reflexes; normal sensation; normal motor function; MSK: 5/5 strength; normal ROM hips; ambulatory without assistance; no tenderness EXTREMITIES: no calf tender; no palpable cords in calf; no clubbing, cyanosis , pedal edema PSYCH: normal affect, normal mood SKIN: warm; moist; no petechiae; no telengectasias; no jaundice; no rash Results Laboratory Results: 06/10/16 10:42 06/10/16 04:06 06/09/16 06/10/16 06/10/16 19:33 04:06 04:06 WBC 7.7 7.2 RBC 2.92 L 3.03 L Hgb 8.8 L 9.1 L Hct 25.6 L 26.5 L MCV 88 87 MCH 30.0 30.1 MCHC 34.3 34.4 RDW 15.3 H 15.7 H Plt Count 136 L 122 L Seg Neutrophils % 64.7 58.8 Lymphocytes % 25.5 30.6 Monocytes % 8.5 8.6 Eosinophils % 0.9 1.3 Basophils % 0.4 0.7 Absolute Neutrophils 5.0 4.2 Absolute Lymphocytes 2.0 2.2 Absolute Monocytes 0.7 0.6 Absolute Eosinophils 0.1 0.1 Absolute Basophils 0.0 0.0 Sodium 141.2 Potassium 4.4 Chloride 108 H Carbon Dioxide 24 Anion Gap 9 BUN 42 H Creatinine 1.47 H Est GFR ( Amer) 56 L Est GFR (Non-Af Amer) 47 L Glucose 88 Calcium 8.7 06/10/16 10:42 WBC 8.7 RBC 2.78 L Hgb 8.5 L Hct 24.5 L MCV 88 MCH 30.6 MCHC 34.6 RDW 15.8 H Plt Count 138 L Seg Neutrophils % Lymphocytes % Monocytes % Eosinophils % Basophils % Absolute Neutrophils Absolute Lymphocytes Absolute Monocytes Absolute Eosinophils Absolute Basophils Sodium Potassium Chloride Carbon Dioxide Anion Gap BUN Creatinine Est GFR ( Amer) Est GFR (Non-Af Amer) Glucose Calcium Labs reviewed and hemoglobin once again trending down. Impressions: Acute Abdomen Series 06/08/16 10:36 IMPRESSION: No acute cardiopulmonary changes No subdiaphragmatic free air. Prior cholecystectomy and gastric bypass. Few borderline distended small bowel loops in the mid and lower abdomen, nonspecific bowel gas pattern Assessment & Plan - Diagnosis (1) GI bleed Qualifiers: GI bleed type/associated pathology: unspecified gastrointestinal hemorrhage type Qualified Code(s): K92.2 - Gastrointestinal hemorrhage, unspecified Is this a current diagnosis for this admission?: YesPlan: Unclear etiology, given his history is clearly at risk for upper GI bleed; he underwent colonoscopy without palpitation and severe diverticular disease was found and a small polyp was removed but no active source of bleeding was identified , therefore at risk for diverticular bleed. I discussed with gastroenterology who suggested a nuclear bleeding scan to see if we can identify the source of his blood loss. Depending on those results and his continued progress, he may need transfer to a tertiary care center where endoscopy of the [place] gastric remnant can be performed. Continue PPI therapy started in the emergency department, continue to trend H&H. (2) Acute renal insufficiency Is this a current diagnosis for this admission?: YesPlan: Continue to hydrate and monitor. He is not far off from his baseline which appears to be around 1.3 (3) Atrial fibrillation Qualifiers: Atrial fibrillation type: chronic Qualified Code(s): I48.2 - Chronic atrial fibrillation Is this a current diagnosis for this admission?: YesPlan: Rate controlled, continue current regimen. Hold anticoagulation due to history of intracranial hemorrhage and current GI bleed (4) Anemia Qualifiers: Anemia type: iron deficiency [place] deficiency anemia type: unspecified iron deficiency Qualified Code(s): D50.9 - Iron deficiency anemia, unspecified Is this a current diagnosis for this admission?: YesPlan: Acute blood loss anemia secondary to the above. Risk and benefits of transfusion were described with the patient and he is agreeable to blood products. He has tolerated transfusion in the past without evidence of reaction. He is artery received 1 unit of packed red blood cells and now requires at least 2 more. Will check follow-up CBC and continue to transfuse as needed. (5) Coronary artery disease Qualifiers: Coronary Disease-Associated Artery/Lesion type: [place] artery [place] vs. transplanted heart: [place] heart Associated angina: without angina Qualified Code(s): I25.10 - Atherosclerotic heart disease of [place] coronary artery without angina pectoris Is this a current diagnosis for this admission?: YesPlan: Stable but probably don't want his hematocrit below 30 for prolonged periods if unavoidable; if he doesn't respond with conservative measures will need to transfer to tertiary care center. Continue current regimen. Holding antiplatelet therapy for the reasons noted above. Discontinue beta polo due to developing hypovolemic shock. (6) Hyperkalemia Is this a current diagnosis for this admission?: YesPlan: Resolved. Mild and chronic. - Time Time Spent with patient: 25-34 minutes - Plan Summary Plan Summary: Follow-up on bleeding scan and if source identified in an area reachable by our endoscopist will reconsult gastroenterology for their recommendations. However if no source identified or in an area such as the gastric remnant then he will need transfer to a tertiary care center for more advanced endoscopy.
[2016-06-10] MEDS ORDERED: PROMETHAZINE HCL INJ 25 MG/1 ML VIAL ONE (19:16)
[2016-06-10] MEDS ORDERED: NALOXONE HCL INJ/PF 0.4 MG/1 ML SDV ONE (19:16)
[2016-06-10] MEDS ORDERED: ONDANSETRON HCL INJ/PF 4 MG/2 ML SDV ONE (19:16)
[2016-06-10] MEDS ORDERED: FENTANYL CITRATE INJ/PF 100 MCG/2 ML AMPUL ONE (19:17)
[2016-06-10] MEDS ORDERED: FLUMAZENIL INJ 0.5 MG/5 ML VIAL IV ONE (19:17)
[2016-06-10] MEDS ORDERED: MIDAZOLAM 2 MG/2 ML INJ ONE ×2 (19:17)
[2016-06-10] MEDS ORDERED: GLUCAGON,HUMAN RECOMB 1 MG INJ ONE (19:18)
[2016-06-10] MEDS ORDERED: EPINEPHRINE INJ 1 MG/10 ML DISP.SYRIN ONE (19:18)
[2016-06-10] MEDS: SIMVASTATIN 40 MG TABLET PO SCH (21:40)
[2016-06-10 22:05] LABS: HEMATOCRIT 19.1 % (37.9-51.0); HGB HCT DIFFERENCE 0.4; MEAN CORPUSCULAR HEMOGLOBIN 29.7 pg (27.0-33.4); MEAN CORPUSCULAR HGB CONC 34.2 g/dL (32.0-36.0); MEAN CORPUSCULAR VOLUME 87 fl (80-97); RED BLOOD COUNT 2.21 10^6/uL (4.35-5.55); RED CELL DISTRIBUTION WIDTH 15.7 % (11.5-14.0); WHITE BLOOD COUNT 6.7 10^3/uL (4.0-10.5)
--- NOTE | 2016-06-10 22:13 | OPERATIVE REPORT E ---
Operative Report NAME: OTTO TAYLOR : 1940 AGE: 75Y DATE OF SURGERY: 06/10/2016 ROOM: 611 PREOPERATIVE DIAGNOSES: 1. Acute history of GI bleed. 2. History of Lizeth-en-Y gastric bypass. 3. History of peptic ulcer disease complicated by GI bleed, and perforation. POSTOPERATIVE DIAGNOSES: 1. Acute history of GI bleed. 2. History of Lizeth-en-Y gastric bypass. 3. History of peptic ulcer disease complicated by GI bleed, and perforation. 4. Source of GI bleed likely small intestine beyond efferent limb of gastric bypass. OPERATIONS: 1. Esophagogastrojejunostomy with adult gastroscope. 2. Esophagogastrojejunostomy with pediatric colonoscope to 175 cm. SURGEON: AMANDA BRIONES M.D. ANESTHESIA: Conscious sedation. COMPLICATIONS: None. ESTIMATED BLOOD LOSS: None. DRAINS: None. TISSUE REMOVED OR ALTERED: None. DESCRIPTION OF PROCEDURE: Patient was set up for upper endoscopy in the ICU. He was placed in the left lateral decubitus position. Monitoring device was hooked up. The patient was hemodynamically at this time. Appropriate level sedation induced. The hypopharynx was anesthetized. The patient was essentially edentulous. The flexible adult upper endoscope was advanced through the hypopharynx, down the esophagus, into the small gastric pouch and then immediately into the gastrojejunostomy for a full length of 100 cm. There was no evidence of tumor, stricture, bleeding, polyp or ulcer. There was no evidence of clot. The scope was withdrawn uneventfully. We then brought onto the field a pediatric colonoscope. This was advanced through the hypopharynx, through the esophagus, through the gastrojejunostomy, and then all the way down the efferent jejunal limb of the Lizeth-en-Y bypass. We got to approximately 175 cm of scope advanced into the limb and I could see neither bleeding, evidence of bleeding, clot, or the jejunojejunostomy. Therefore, I could not advance the scope in any further direction at this point, and so the scope was withdrawn, unable to visualize the bleeding source. The patient tolerated the procedure well. He will be continued to be monitored in the unit. DICTATING PHYSICIAN: AMANDA BRIONES M.D. [id number] PHY#: [id number] ID: [id number] JOB#: [id number] ACCT: [id number] cc:AMANDA BRIONES M.D. >
[2016-06-10 22:17] LABS: HEMOGLOBIN 6.5 g/dL (13.5-17.0)
[2016-06-11 00:30] LABS: PROTHROMBIN TIME 19.1 SEC (11.4-15.4)
[2016-06-11 00:31] LABS: PARTIAL THROMBOPLASTIN TIME 30.1 SEC (23.5-35.8)
[2016-06-11] MEDS ORDERED: DESMOPRESSIN ACETATE INJ 4 MCG/1 ML AMPULE ONE (01:27)
[2016-06-11] MEDS ORDERED: DESMOPRESSIN ACETATE INJ 4 MCG/1 ML AMPULE IV ONE (01:30)
--- NOTE | 2016-06-11 02:07 | PDOC TRANSFER SUMMARY ---
General Admission Date/PCP: 06/08/16 12:59 GEOVANY STRATTON MD Resuscitation Status: Full Code - Transfer Diagnosis (1) Acute posthemorrhagic anemia Is this a current diagnosis for this admission?: Yes (2) CKD (chronic kidney disease), stage III Is this a current diagnosis for this admission?: Yes (3) GI bleed Is this a current diagnosis for this admission?: Yes (4) Hypotension Is this a current diagnosis for this admission?: Yes - Transfer Medications Home Medications: Fluoxetine HCl [Prozac 20 mg Capsule] 10 mg PO DAILY 05/18/12 Simvastatin [Zocor 80 mg Tablet] 40 mg PO QHS 05/18/12 Finasteride 5 mg PO DAILY 12/04/15 Metoprolol Succinate [Toprol Xl] 25 mg PO DAILY 12/04/15 Colchicine [Colchicine 0.6 mg Tablet] 1 tab PO DAILY 01/24/16 Ferrous Sulfate [Iron] 325 mg PO DAILY 06/08/16 Omeprazole 40 mg PO DAILY 06/08/16 Transfer Medications: Current Medications Acetaminophen (Tylenol 325 Mg Tablet) 650 mg PO Q4HP PRN PRN Reason: FOR PAIN OR TEMP Stop: 07/08/16 12:58 Colchicine (Colcrys 0.6 Mg Tablet) 0.6 mg PO DAILY DANNI Stop: 07/09/16 09:59 Last Admin: 06/10/16 10:00 Dose: 0.6 mg Ferrous Sulfate (Feosol 325 Mg Tablet) 325 mg PO DAILY DNANI Stop: 07/09/16 09:59 Last Admin: 06/10/16 10:00 Dose: 325 mg Finasteride (Proscar 5 Mg Tablet) 5 mg PO DAILY DANNI Stop: 07/09/16 09:59 Last Admin: 06/10/16 10:00 Dose: 5 mg Fluoxetine HCl (Prozac Soln 20 Mg/5 Ml Udcup) 10 mg PO DAILY [facility] Stop: 07/09/16 09:59 Last Admin: 06/10/16 10:52 Dose: 10 mg Sodium Chloride (Nacl 0.9% 250 Ml Iv Soln) 250 mls @ 30 mls/hr IV .DURING TRANSFUSION PRN PRN Reason: THIS MED IS NOT "PRN" Stop: 06/11/16 11:20 Sodium Chloride (Nacl 0.9% 250 Ml Iv Soln) 250 mls @ 0 mls/hr IV CONTINUOUS PRN ; As Directed PRN Reason: AFTER EACH UNIT Stop: 06/11/16 11:20 Sodium Chloride (Nacl 0.9% 250 Ml Iv Soln) 250 mls @ 30 mls/hr IV .DURING TRANSFUSION PRN PRN Reason: THIS MED IS NOT "PRN" Stop: 06/11/16 18:19 Sodium Chloride (Nacl 0.9% 250 Ml Iv Soln) 250 mls @ 0 mls/hr IV CONTINUOUS PRN ; As Directed PRN Reason: AFTER EACH UNIT Stop: 06/11/16 18:19 Ondansetron HCl (Zofran Inj/Pf 4 Mg/2 Ml Sdv) 4 mg IV Q4HP PRN PRN Reason: FOR NAUSEA/VOMITING Stop: 07/08/16 13:03 Pantoprazole Sodium (Protonix Iv Inj 40 Mg Vial) 40 mg IV Q12 [facility] Stop: 06/12/16 21:59 Last Admin: 06/10/16 21:16 Dose: 40 mg Simvastatin (Zocor 40 Mg Tablet) 40 mg PO QHS DANNI Stop: 07/08/16 21:59 Last Admin: 06/10/16 21:40 Dose: Not Given - Allergies Allergies/Adverse Reactions: No Known Allergies Allergy (Verified 12/02/15 17:13) Hospital Course Hospital Course: 75-year-old male who presented to the emergency room on the of this month with sudden onset of bloody stools starting during the previous evening, and continuing. Please see transcribed history and physical for more complete discussion of same. History of a gastrojejunostomy bypass. Upper endoscopy 2 months ago revealed a small anastomotic ulcer. Colonoscopy on the revealed diverticulosis and internal hemorrhoids. Polyp removed with biopsy forceps. The following day , patient had several more bloody stools. Was transferred to our intensive care unit, and received 4 units of packed cells along with planned fresh frozen plasma. Intermittent brief hypotension, systolic pressure of 89 which has resolved. The evening of the , he underwent esophago-gastrojejunostomy with adult gastroscope, followed by similar procedure with pediatric colonoscope to 175 cm. No specific source of bleeding was discovered. Continued to have bloody stools. Patient discussed at length with Dr. Goncalves , who performed the endoscopic procedure on the . Decision was made to transfer patient to tertiary center. He has discussed the matter with the general surgery staff at [facility]. Accepting physician is Dr. Derian Nair. Patient is aware he is being transferred and agrees with same. Will proceed with air transport if available. Present time is 2 AM on 06/11/2016. Blood pressure 119/95. Pulse 76 and regular. 100% saturation on room air. Respirations are 15 and unlabored. Awake alert pleasant and cooperative. Mildly anxious without agitation. ICU nursing staff are proceeding to notify family of plans. He is stable for transport. Physical Exam Vital Signs: Temp Pulse Resp BP Pulse Ox 98.4 F 75 20 90/57 L 100 06/11/16 00:05 06/10/16 22:40 06/10/16 22:40 06/10/16 22:40 06/10/16 22:40 Intake & Output 06/10/16 06/11/16 06/12/16 00:59 00:59 00:59 Intake Total 3547 4254 Output Total 151 Balance 3547 4103 Weight 64.6 kg 66 kg Results Laboratory Results: 06/10/16 21:57 06/10/16 04:06 06/10/16 06/10/16 06/10/16 04:06 04:06 10:42 WBC 7.2 8.7 RBC 3.03 L 2.78 L Hgb 9.1 L 8.5 L Hct 26.5 L 24.5 L MCV 87 88 MCH 30.1 30.6 MCHC 34.4 34.6 RDW 15.7 H 15.8 H Plt Count 122 L 138 L Seg Neutrophils % 58.8 Lymphocytes % 30.6 Monocytes % 8.6 Eosinophils % 1.3 Basophils % 0.7 Absolute Neutrophils 4.2 Absolute Lymphocytes 2.2 Absolute Monocytes 0.6 Absolute Eosinophils 0.1 Absolute Basophils 0.0 Sodium 141.2 Potassium 4.4 Chloride 108 H Carbon Dioxide 24 Anion Gap 9 BUN 42 H Creatinine 1.47 H Est GFR ( Amer) 56 L Est GFR (Non-Af Amer) 47 L Glucose 88 Calcium 8.7 06/10/16 06/10/16 21:11 21:57 WBC Cancelled 6.7 RBC Cancelled 2.21 L Hgb Cancelled 6.5 L Hct Cancelled 19.1 L MCV Cancelled 87 MCH Cancelled 29.7 MCHC Cancelled 34.2 RDW Cancelled 15.7 H Plt Count Cancelled 101 L Seg Neutrophils % Lymphocytes % Monocytes % Eosinophils % Basophils % Absolute Neutrophils Absolute Lymphocytes Absolute Monocytes Absolute Eosinophils Absolute Basophils Sodium Potassium Chloride Carbon Dioxide Anion Gap BUN Creatinine Est GFR ( Amer) Est GFR (Non-Af Amer) Glucose Calcium Impressions: Acute Abdomen Series 06/08/16 10:36 IMPRESSION: No acute cardiopulmonary changes No subdiaphragmatic free air. Prior cholecystectomy and gastric bypass. Few borderline distended small bowel loops in the mid and lower abdomen, nonspecific bowel gas pattern GI Bleed Scan Nuclear Medicine 06/10/16 00:00 IMPRESSION: Positive scan for active gastrointestinal bleeding with a focus noted initially in the left mid abdomen, likely mid jejunum.
[2016-06-11 03:10] LABS: HEMATOCRIT 18.4 % (37.9-51.0); HGB HCT DIFFERENCE 1.1; MEAN CORPUSCULAR HEMOGLOBIN 30.3 pg (27.0-33.4); MEAN CORPUSCULAR HGB CONC 35.1 g/dL (32.0-36.0); MEAN CORPUSCULAR VOLUME 87 fl (80-97); RED BLOOD COUNT 2.13 10^6/uL (4.35-5.55); RED CELL DISTRIBUTION WIDTH 14.9 % (11.5-14.0); WHITE BLOOD COUNT 5.7 10^3/uL (4.0-10.5)
[2016-06-11 03:17] LABS: HEMOGLOBIN 6.5 g/dL (13.5-17.0)
[2016-06-11] MEDS ORDERED: NORMAL SALINE 250 ML IV PRN ×2 (03:22)
--- NOTE | 2016-06-11 08:08 | PROGRESS NOTE E ---
Progress Note NAME: OTTO TAYLOR : 1940 AGE: 75Y DATE: 06/11/2016 ROOM: 611 SUBJECTIVE: The patient is a 75-year-old white gentleman with a history of recurrent acute GI bleed. The patient underwent multiple transfusions of packed red blood cells the prior 48 hours. He was transferred to the intensive care unit on the evening of 06/10/2016. He underwent upper endoscopy by Dr. Goncalves with sequential endoscopes, including a pediatric colonoscope. He has a gastrojejunostomy sheela-en-Y configuration. Unfortunately, the bleeding site suggested by radionuclide bleeding scan in the jejunum could not be identified. The patient continued to drop his hemoglobin and have a sagging blood pressure. I was called at 12:[address] Senior, hospitalist, regarding management of this patient. I then proceeded to initiate more aggressive blood product transfusion as well as FFP and DDAVP. This was initiated by the nursing staff. I then proceeded to initiate phone calls to facilitate a transfer to [facility] in [place]. Conversations were held with medical front desk coordinator, as well as Derian Galvan general surgeon. Eventually, through back and forth conversation, the patient was accepted. Arrangements were made for transfer. The patient had transfer summary provided by Dr. Senior. Total time engaged in phone conversations with the staff at [facility] as well as [facility] 1 hour. DICTATING PHYSICIAN: AMANDA GONCALVES M.D. [id number] PHY#: [id number] ID: [id number] JOB#: [id number] ACCT: [id number] cc: >
[2016-06-11 08:13] VITALS: BP 95/58
--- NOTE | 2016-06-11 08:15 | PDOC PROGRESS REPORT ---
Subjective Progress Note for:: 06/11/16 Subjective:: patient was transferred to ICU overnight recommendation had been made to Dr Pichardo to have bleeding scan and transfer to tertiary institution bleeding scan noted to have bleeding site possibly in the mid jejunal area Dr Leblanc was then asked to perform EGD with both normal caliber scope along with pediatric colonoscope bleeding source could not be identified patient likely has source in the tejon bypassed stomach or distal small intestine patient needs to be transferred to tertiary institution for possible angiogram along with embolization initial request for transfer was apparently declined however now has been accepted at [facility]. pending transfer, his bleeding is accompanied by hypotension and likely needs to have embolization done patient has received multiple blood transfusions in the past Physical Exam Vital Signs: Temp Pulse Resp BP Pulse Ox 98.2 F 64 20 100/64 100 06/11/16 02:33 06/11/16 08:00 06/11/16 08:00 06/11/16 08:00 06/10/16 22:40 Intake & Output 06/10/16 06/11/16 06/12/16 06:59 06:59 06:59 Intake Total 3967 4909 500 Output Total 576 Balance 3967 4333 500 Weight 66 kg 67.5 kg General appearance: PRESENT: thin Head exam: PRESENT: atraumatic, normocephalic Eye exam: PRESENT: EOMI, PERRLA. ABSENT: periorbital swelling, scleral icterus Mouth exam: PRESENT: moist Throat exam: ABSENT: tonsillar exudate Neck exam: ABSENT: meningismus, tenderness, thyromegaly Respiratory exam: PRESENT: symmetrical, unlabored. ABSENT: accessory muscle use Cardiovascular exam: PRESENT: RRR, +S1, +S2 GI/Abdominal exam: PRESENT: hyperactive bowel sounds, soft. ABSENT: rebound, rigid, tenderness Gentrourinary exam: ABSENT: scrotal swelling Extremities exam: ABSENT: joint swelling Musculoskeletal exam: PRESENT: full ROM Neurological exam: PRESENT: oriented to time, oriented to situation, reflexes normal Psychiatric exam: PRESENT: appropriate affect Skin exam: PRESENT: normal color. ABSENT: mottled, pallor, petechiae, urticaria , vesicles Results Laboratory Results: 06/11/16 03:00 06/10/16 04:06 06/10/16 06/10/16 06/10/16 10:42 21:11 21:57 WBC 8.7 Cancelled 6.7 RBC 2.78 L Cancelled 2.21 L Hgb 8.5 L Cancelled 6.5 L Hct 24.5 L Cancelled 19.1 L MCV 88 Cancelled 87 MCH 30.6 Cancelled 29.7 MCHC 34.6 Cancelled 34.2 RDW 15.8 H Cancelled 15.7 H Plt Count 138 L Cancelled 101 L Blood Type Antibody Screen 06/11/16 06/11/16 03:00 04:00 WBC 5.7 RBC 2.13 L Hgb 6.5 L Hct 18.4 L MCV 87 MCH 30.3 MCHC 35.1 RDW 14.9 H Plt Count 72 L Blood Type O POSITIVE Antibody Screen NEGATIVE Impressions: Acute Abdomen Series 06/08/16 10:36 IMPRESSION: No acute cardiopulmonary changes No subdiaphragmatic free air. Prior cholecystectomy and gastric bypass. Few borderline distended small bowel loops in the mid and lower abdomen, nonspecific bowel gas pattern GI Bleed Scan Nuclear Medicine 06/10/16 00:00 IMPRESSION: Positive scan for active gastrointestinal bleeding with a focus noted initially in the left mid abdomen, likely mid jejunum. Assessment & Plan - Diagnosis (1) GI bleed Qualifiers: GI bleed type/associated pathology: unspecified gastrointestinal hemorrhage type Qualified Code(s): K92.2 - Gastrointestinal hemorrhage, unspecified Is this a current diagnosis for this admission?: YesPlan: negative EGD negative colonoscopy patient has positive bleeding scan symptoms required multiple blood transfusions along with symptoms likely dealing with medium sized blood vessal possibly in small intestinal area requiring angiographic embolization patient has been accepted to [facility] transfuse as necessary PPI drip (2) GI bleed Qualifiers: GI bleed type/associated pathology: melena Qualified Code(s): K92.1 - Melena - Time Time Spent with patient: 25-34 minutes
== END 2016-06-11 08:20 | disposition short-term general hospital (02) | DRG 378 ==
LOC: ER 09:27 → EH 12:59 → 4W 15:16 → ICU 06-10 20:06
PROVIDERS: ADMIT Internal Medicine; ATTEND Internal Medicine
PROC: 0DBN8ZX Excision of Sigmoid Colon, Via Natural or Artificial Opening Endoscopic, Diagnostic (ICD-10-PCS; principal; 2016-06-09 11:30)
PROC: 0DJ08ZZ Inspection of Upper Intestinal Tract, Via Natural or Artificial Opening Endoscopic (ICD-10-PCS; 2016-06-10)
PROC: 30233N1 Transfusion of Nonautologous Red Blood Cells into Peripheral Vein, Percutaneous Approach (ICD-10-PCS; 2016-06-10)
PROC: 30233K1 Transfusion of Nonautologous Frozen Plasma into Peripheral Vein, Percutaneous Approach (ICD-10-PCS; 2016-06-11)
DX: K92.2 Gastrointestinal hemorrhage, unspecified (principal); D62 Acute posthemorrhagic anemia; N17.9 Acute kidney failure, unspecified; K92.1 Melena; I25.10 Atherosclerotic heart disease of native coronary artery without angina pectoris; E78.5 Hyperlipidemia, unspecified; I34.0 Nonrheumatic mitral (valve) insufficiency; J44.9 Chronic obstructive pulmonary disease, unspecified; N18.3 Chronic kidney disease, stage 3 (moderate); I95.9 Hypotension, unspecified; K63.89 Other specified diseases of intestine; I48.2 Chronic atrial fibrillation; D50.9 Iron deficiency anemia, unspecified; E87.5 Hyperkalemia; D12.5 Benign neoplasm of sigmoid colon; K64.8 Other hemorrhoids; Z98.84 Bariatric surgery status; I25.2 Old myocardial infarction; Z87.891 Personal history of nicotine dependence; Z86.73 Personal history of transient ischemic attack (TIA), and cerebral infarction without residual deficits
CPT/HCPCS: 36415; 36430; 43235; 45380; 74022; 78278; 80048; 80053; 81001; 82272; 83690; 83735; 85025; 85027; 85610; 85730; 86850; 86900; 86901; 86920; 88305; 93005; 93010; 96374; 99285; A9560; J0171; J1200; J1610; J1642; J2250; J2310; J2405; J2550; J2597; J3010; J3490; J7030; J7120; P9016; P9017; Q9969; S0164

== ENCOUNTER 2019-07-08 19:54 | Emergency (ER) | payer OTHER, BC ==
[2019-07-08] MEDS ORDERED: ONDANSETRON HCL INJ/PF 4 MG/2 ML SDV IV ONE ×2 (20:28→20:29)
[2019-07-08] MEDS ORDERED: ONDANSETRON HCL INJ/PF 4 MG/2 ML SDV ONE (20:29)
--- NOTE | 2019-07-08 20:33 | RADIOLOGY REPORT (SQ) ---
PROCEDURE: CLINICAL HISTORY: 78 years Male headache COMPARISON: None. TECHNIQUE: Contiguous axial CT images obtained through the brain without IV contrast. This exam was performed according to our department optimization program which includes automated exposure control, adjustment of the mA and/or kv according to patient size and/or use of iterative reconstruction technique. FINDINGS: The ventricles and sulci are prominent consistent with atrophic changes. Microvascular ischemic changes. There is a focus of hemorrhage in the anterior and medial aspect of the right cerebellar hemisphere immediately adjacent to the fourth ventricle and the middle cerebellar peduncle. Hemorrhage measures 1.4 x 1.7 cm. Small amount of surrounding vasogenic edema is noted. No evidence of extension into the intraventricular system. Scattered areas of previous lacunar infarct in the basal ganglia and brooks radiata bilaterally. No midline shift. Atherosclerotic calcifications. No fluid or significant mucosal thickening in the visualized paranasal sinuses. No depressed calvarial fractures. IMPRESSION: Small focus of acute intraparenchymal hemorrhage in the anterior medial right cerebellum immediately adjacent to the right lateral ventricle. Recommend further evaluation with CTA . Dr. Carr was called and notified of the findings at 7:30 PM central time. Generalized atrophy with microvascular ischemic changes.
[2019-07-08 20:39] LABS: ABSOLUTE EOSINOPHILS # (AUTO) 0.1 10^3/uL (0.0-0.6); ABSOLUTE MONOCYTES (AUTO) 0.6 10^3/uL (0.1-1.4); TOTAL CELLS COUNTED % (AUTO) 100 %
[2019-07-08 20:42] LABS: INTERNATIONAL RATION (INR) 1.15; PARTIAL THROMBOPLASTIN TIME 29.2 SEC (23.5-35.8)
[2019-07-08 20:45] LABS: PROTHROMBIN TIME 14.8 SEC (11.4-15.4)
[2019-07-08 20:48] LABS: ABSOLUTE LYMPHOCYTES (AUTO) 2.6 10^3/uL (0.5-4.7); ABSOLUTE NEUT (AUTO) 3.2 10^3/uL (1.7-8.2); BASOPHILS % (AUTO) 0.7 % (0-2); EOSINOPHILS % (AUTO) 1.3 % (0-6); HEMATOCRIT 41.1 % (37.9-51.0); HEMOGLOBIN 13.7 g/dL (13.5-17.0); LYMPHOCYTES % (AUTO) 40.3 % (13-45); MEAN CORPUSCULAR HEMOGLOBIN 30.9 pg (27.0-33.4); MEAN CORPUSCULAR HGB CONC 33.3 g/dL (32.0-36.0); MEAN CORPUSCULAR VOLUME 93 fl (80-97); PLATELET COUNT 193 10^3/uL (150-450); RED BLOOD COUNT 4.43 10^6/uL (4.35-5.55); RED CELL DISTRIBUTION WIDTH 14.6 % (11.5-14.0); SEGMENTED NEUTROPHILS % (AUTO) 48.7 % (42-78); WHITE BLOOD COUNT 6.5 10^3/uL (4.0-10.5)
[2019-07-08] MEDS ORDERED: HYDRALAZINE HCL INJ/PF 20 MG/1 ML SDV IV ONE (20:59)
[2019-07-08] MEDS ORDERED: MANNITOL 25% INJ 12.5 GM/50 ML VIAL IV ONE (21:00)
[2019-07-08] MEDS ORDERED: TRANEXAMIC ACID INJ/PF 1,000 MG/10 ML SDV IV ONE (21:00)
[2019-07-08] MEDS ORDERED: NORMAL SALINE 1000 ML 1,000 ML IV ONE (21:01)
[2019-07-08 21:09] LABS: ALBUMIN 4.2 g/dL (3.5-5.0); ALKALINE PHOSPHATASE 103 U/L (38-126); ANION GAP 10 (5-19); ASPARTATE AMINO TRANSFERASE 35 U/L (17-59); BILIRUBIN,DIRECT 0.3 mg/dL (0.0-0.4); BILIRUBIN,TOTAL 0.8 mg/dL (0.2-1.3); BLOOD UREA NITROGEN 32 mg/dL (7-20); CALCIUM 9.1 mg/dL (8.4-10.2); CARBON DIOXIDE 22 mmol/L (22-30); CHLORIDE 109 mmol/L (98-107); CREATINE KINASE 101 U/L (55-170); GLUCOSE 140 mg/dL (75-110); POTASSIUM 4.9 mmol/L (3.6-5.0); TOTAL PROTEIN 7.7 g/dL (6.3-8.2)
[2019-07-08 21:19] LABS: CREATINE KINASE MB 3.56 ng/mL (<4.55); TROPONIN I 0.013 ng/mL
[2019-07-08] MEDS ORDERED: MANNITOL 500 ML IV ONE (21:20)
--- NOTE | 2019-07-08 21:25 | ER Document Report ---
Entered by ISACC AVERY SCRIBE 07/08/192108 Acting as scribe for:CHRISTA SMITH IV, MD ED Neuro Symptoms/Deficit - General Chief Complaint: Trouble Walking Stated Complaint: HIGH BLOOD PRESSURE Primary Care Provider: GEOVANY STRATTON MD [Primary Care Provider] - Follow up as needed Mode of Arrival: Ambulatory Information source: Patient, Relative - Daughter Notes: This 78 year old male patient presents to the ED today with complaints of dystaxia and double vision since approximately 1850 tonight. Patient states that he was getting up from his computer when he noticed that he was unsteady on his feet and felt nauseous. 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 Daughter reports that the patient has had hemorrhagic strokes in 2009 and 2013 and that he was transferred to [facility] for further treatment both times. Upon exam, patient states that closing one of his eyes makes it easier to focus. Patient also reports hypertension. Patient denies use of blood thinners. TRAVEL OUTSIDE OF THE [place] IN LAST 30 DAYS: No - Related Data Allergies/Adverse Reactions: No Known Allergies Allergy (Verified 12/02/15 17:13) Past Medical History - General Information source: Patient, Relative - Daughter - Social History Smoking Status: Never Smoker Cigarette use (# per day): No Chew tobacco use (# tins/day): No Smoking Education Provided: No Frequency of alcohol use: None Drug Abuse: None Family History: Reviewed & Not Pertinent, Hypertension Patient has suicidal ideation: No Patient has homicidal ideation: No - Past Medical History Cardiac Medical History: Reports: Hx Atrial Fibrillation, Hx Coronary Artery Disease, Hx Heart Attack, Hx Hypercholesterolemia, Hx Heart Murmur - Mitral regurgitation Pulmonary Medical History: Reports: Hx COPD Neurological Medical History: Reports: Hx Cerebrovascular Accident - INTERNAL BLEED IN 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 2010 Musculoskeletal Medical History: Reports Hx Arthritis, Reports Hx Gout Past Surgical History: Reports: Hx Abdominal Surgery - peg, Hx Appendectomy, Hx Cardiac Surgery - pacer, Hx Cholecystectomy, Hx Gastric Bypass Surgery, Hx Orthopedic Surgery - knee, Hx Tonsillectomy - Immunizations Hx Diphtheria, Pertussis, Tetanus Vaccination: Yes Hx Pneumococcal Vaccination: 04/18/15 Review of Systems - Review of Systems Constitutional: See HPI, Other - Hypertension EENT: See HPI, Double vision Cardiovascular: No symptoms reported Respiratory: No symptoms reported Gastrointestinal: See HPI, Nausea Genitourinary: No symptoms reported Male Genitourinary: No symptoms reported Musculoskeletal: See HPI, Other - Dystaxia Skin: No symptoms reported Hematologic/Lymphatic: No symptoms reported Neurological/Psychological: See HPI, Gait changes -: Yes All other systems reviewed and negative Physical Exam - Vital signs Vitals: Temp Pulse Resp BP Pulse Ox 98.3 F 63 14 197/110 H 96 07/08/19 20:06 07/08/19 20:06 07/08/19 20:06 07/08/19 20:06 07/08/19 20:06 Interpretation: Hypertensive - General General appearance: Alert - HEENT Head: Normocephalic, Atraumatic Eyes: Normal Pupils: PERRL - Respiratory Respiratory status: No respiratory distress Chest status: Nontender Breath sounds: Normal Chest palpation: Normal - Cardiovascular Rhythm: Regular Heart sounds: Normal auscultation Murmur: No Friction rub: No Gallop: None auscultated - Abdominal Inspection: Normal Distension: No distension Bowel sounds: Normal Tenderness: Nontender Organomegaly: No organomegaly - Back Back: Normal, Nontender - Extremities General upper extremity: Normal inspection General lower extremity: Normal inspection - Neurological Neuro grossly intact: Yes Cognition: Normal Orientation: AAOx4 Pana Coma Scale Eye Opening: Spontaneous Pana Coma Scale Verbal: Oriented Pana Coma Scale Motor: Obeys Commands Pana Coma Scale Total: 15 Speech: Normal Motor strength normal: LUE, RUE, LLE, RLE Additional motor exam normals: No: Pronator drift Notes: No visual field deficits. Memory intact. No loss of sensation or strength in all extremities. No facial droop. No slurred speech. - Psychological Associated symptoms: Normal affect, Normal mood - Skin Skin Temperature: Warm Skin Moisture: Dry Skin Color: Normal Course - Re-evaluation Re-evalutation: 07/08/19 21:[address] scan, diagnosis of intracranial hemorrhage, plans of initial treatment and transfer to tertiary center for higher level of care all discussed with patient and patient's family member all questions were answered. Patient is currently sitting up in bed, alert and oriented x3, in no apparent distress. - Vital Signs Vital signs: Temp Pulse Resp BP Pulse Ox 98.3 F 63 20 192/107 H 99 07/08/19 20:06 07/08/19 20:13 07/08/19 20:21 07/08/19 20:20 07/08/19 20:21 - Laboratory Result Diagrams: 07/08/19 20:14 07/08/19 20:14 Laboratory results interpreted by me: 07/08/19 20:14 RDW 14.6 H - Diagnostic Test Radiology reviewed: Reports reviewed - EKG Interpretation by Me Additional EKG results interpreted by me: 07/08/19 21:11 EKG obtained on 07/08/2019 at 2041 hrs. was interpreted by this MD. Findings: Ventricular paced rhythm, rate 61, there are no obvious patterns of ST segment elevation or depression present to suggest acute myocardial ischemia or infarction. Impression [id number]/22/20 21:[address] scan, diagnosis of intracranial hemorrhage, plans of initial blair atment and transfer to tertiary center for higher level of care all discussed with patient and patient's family member all questions were answered. Patient is currently sitting up in bed, alert and oriented x3, in no apparent distress. Impression: Ventricular paced rhythm with nonspecific ST segments. - Consults MARIZA FENTON ALP, [facility] NICU Time consulted: 20:40 - Case was discussed with Mariza Fenton ALP with [facility] NICU. She accepted the patient for transfer to her facility on behalf of Dr. Renea Keenan. In terms of the treatment of the patient's hypertension it was decided to use small doses of hydralazine to bring the patient's pressure down as we do not have Cardene or Cleviprex available at this facility. Furthermore, the patient's heart rate is 62, which makes the use of Lopressor or another beta-polo a less favorable option. Reason for consultation: 07/08/19 21:15 Intracranial hemorrhage Critical Care Note - Critical Care Note Total time excluding time spent on procedures (mins): 60 - Intracranial hemorrhage ED [employer]te[employer]/Exc Criteria - Date/Time patient last known well: Date/Time: 07/08/2019 at 1815 hrs. - Date/Time patient arrived in ED: _: 1954 - Inclusion Criteria: 1: Patient presented to ED within 3 hours of acute ischemic stroke symptom onset? -: Yes 2: Did baseline CT exclude intracranial hemorrhage and/or other risk factors? -: No 3: Is the age of the patient 18 years of age or greater? -: Yes : If any of the above questions are answered "NO" then stop, patient is not a candidate for Alteplase, : If all of the above questions are answered "YES" then continue with Exclusion Criteria. - Exclusion Criteria: 1: Is there evidence of intracranial hemorrhage on baseline CT? -: Yes 2: Is there suspicion of subarachnoid hemorrhage (even if CT negative)? 3: Is there a history of serious head trauma, recent previous stroke or W[place] with in 3 months? 4: Does the patient have a clinical presentation consistent with [place] or post-WV pericarditis? 5: Is there history of intracranial hemorrhage? 6: On repeated measurement is Systolic BP greater than 185mmHg or Diastolic BP greater that 110 mmHg and is aggressive treatment needed to reduce blood pressure to these limits (e.g. constant infusion of an anti-hypertensive)? 7: Did the patient awake with stroke symptoms? 8: Has the patient had a lumbar puncture or an arterial puncture at a non- compressile site within 7 days? 9: With in the last 14 days did the patient have surgery or major trauma? 10: Is the patient or less than 2 weeks? 11: Was there any active bleeding or acute trauma? 12: Does the patient have intracranial neoplasm, arteriovenous malformation or aneurysm? 13: Does the patient have abnormal glucose (less than 50 or greater than 400mg/dl)? Record glucose in Comment. 14: Patient has rapidly improving symptoms at the time Alteplase is to be Administered. 15: Does the patient have any risks for bleeding, including but not limited to: a.: Current use of Coumadin with PT greater than 15 seconds or INR greater than 1.7. b.: Current use of Pradaxa (Dabigatran). c.: Heparin administereed within the past 48 hours and PTT elevated. d.: Platelet count less than 100,000/mm. e.: Major surgery or serious trauma within 14 days. f.: Gastrointestinal or gynecological urinary bleeding within 14 days. g.: Myocardial Infarction (WV) within 3 months. : If the answer to any of the above questions is "YES" then stop, the patient is not a candidate for Alteplase. : If the answer to all of the above questions is "NO" then the patient may be eligible for the Administration of Alteplase. : If the patient is noted to have seizure activity at onset of Stroke symptoms; Consult Neurologist for further evaluation. - The patient is: -: Included and is eligible to receive Alteplase. *Initiate bed placement at higher level of care* --: No Reviewed risks & benefits of thrombolytic therapy: I have reviewed the risks and benefits of thrombolytic therapy with the patient and/or his/her family. -: Excluded and not eligible to receive Alteplase for the above exclusions. -: Excluded and not eligible to receive Alteplase for other reasons (specify in comments): - Diagnosis of TIA: -: Patient presented with transient symptoms that are now resolved and no other neurologic findings are currently present. List symptoms in comments. -: Patient is NOT a candidate for tPA. -: ____(put name in comment) has been consulted for admission and continued evaluation of risk factor assessment. ED NIH Stroke Scale - NIH Stroke Scale When completed:: Protocol *: 1. NIH scale should be completed with appropriate accompanying assessment tools. *: 2. The NIH should reflect what the patient is capable of doing and should not be coached by the clinician. 1a. Level of Consciousness: 0=Alert;keenly responsive -: 1=Drowsy -: 2=Obtunded -: 3=Coma/unresponsive or reflex to noxious stimuli. 1a. Responses: 0 1b. Orientation Questions: a. What month is it? -: b. How old are you? -: 0=Answers both questions correctly. -: 1=Answers one question correctly or patient is intubated or has orotracheal trauma. -: 2=Answers neither question correctly. 1b. Responses: 0 1c. Response to commands: a. Open and close eyes? -: b. Blow Off Worker and release hand? -: Credit is given despite weakness. Demonstration of task is permitted. Substitute command if hands cannot be used. -: 0=Performs both tasks correctly -: 1=Performs one task correctly -: 2=Performs neither task correctly 1c. Responses: 0 2. Gaze: Establish eye contact and instruct patient to "Follow my finger" -: 0=Normal -: 1=Partial gaze palsy. Gaze is abnormal in one or both eyes, but where forced deviation or total gaze paresis is not present. -: 2=Forced deviation or total gaze paresis. 2. Responses: 0 3. Visual Callahan: Sees fingers in all four quadrants. -: 0=No visual loss. -: 1=Partial hemianopsia. -: 2=Complete hemianopsia. -: 3=Bilateral hemianopsia (including Cortical blindness) 3. Responses: 0 4. Facial Movement: Instruct patient to: -: a. Show me your teeth -: b. Raise your eyebrows -: c. Close your eyes -: d. Smile -: 0=Normal symmetrical movement -: 1=Minor paralysis (flattened nasolabial fold, asymmetry on smiling). -: 2=Partial paralysis (total or near total paralysis of lower face). -: 3=Complete paralysis of upper and lower face 4. Responses: 0 5. Motor functions (left arm): Alternate sides and extend each arm with palms down (90 degrees if sitting or 45 degrees for supine). -: 0=No drift;limb holds for full 10 seconds. -: 1=Drift; limb holds but drifts down before full 10 seconds, but does not hit bed. -: 2=Some effort against gravity; limb cannot get to or maintain position. -: 3=No effort against gravity; limb falls. -: 4=No movement. -: UN=Amputation, joint fusion, explain in comments. 5. Responses (left arm): 0 5. Motor Functions (right arm): Alternate sides and extend each arm with palms down (90 degrees if sitting or 45 degrees for supine). -: 0=No drift;limb holds for full 10 seconds. -: 1=Drift; limb holds but drifts down before full 10 seconds, but does not hit bed. -: 2=Some effort against gravity; limb cannot get to or maintain position. -: 3=No effort against gravity; limb falls. -: 4=No movement. -: UN=Amputation, joint fusion, explain in comments. 5. Responses (right arm): 0 6. Motor Functions (left leg): With patient lying supine, alternate sides and extend each leg (30 degrees always while supine). -: 0=No drift, leg holds position for full 5 seconds -: 1=Drift; leg falls before full 5 seconds but does not hit bed. -: 2=Some effort against gravity, leg falls to bed but some effort against gravity. -: 3=No effort against gravity, leg falls to bed immediately. -: 4=No movement. -: UN=Amputation, joint fusion; explain in comments. 6. Responses (left leg): 0 6. Motor Functions (right leg): With patient lying supine, alternate sides and extend each leg (30 degrees always while supine). -: 0=No drift, leg holds position for full 5 seconds -: 1=Drift; leg falls before full 5 seconds but does not hit bed. -: 2=Some effort against gravity, leg falls to bed but some effort against gravity. -: 3=No effort against gravity, leg falls to bed immediately. -: 4=No movement. -: UN=Amputation, joint fusion; explain in comments. 6. Responses (right leg): 0 7. Limb Ataxia: With eyes open instruct patient to: -: a. "Touch your finger to your nose". -: b. "Touch your heel to your beck" -: 0=Absent -: 1=Present in one limb. -: 2=Present in two limbs. -: UN=Amputation or joint fusion; explain in comments. 7. Responses: 0 8. Sensory: Test sensation using pinprick or noxious stimuli. Test as many body parts as possible. -: 0=Normal;no sensory loss -: 1=Mile to moderate sensory loss (patient feels pin prick but is less sharp on affected side). -: 2=Severe or total sensory loss. 8. Responses: 0 9. Best Language: Instruct patient to: -: a. "Describe what you see in this picture." -: b. "Name the items in this picture." -: c. "Read these sentences." -: 0=No aphasia, normal -: 1=Mild to moderate aphasia. -: 2=Severe aphasia -: 3=Mute, global aphasia, no usable speech or auditory comprehension. 9. Responses: 0 10. Articulation, Dysarthia: Instruct patient to: -: "Read these words" or "Repeat these words" -: 0=Normal -: 1=Mild to moderate; patient may slur some words but can be understood without difficulty. -: 2=Severe; patients speech so slurred as to be unintelligible in the absence of dysphasia. -: UN=Intubated or other physical barrier, explain in comments. 10. Responses: 0 11. Extinction or inattention: 0=No abnormality -: 1= Visual, tactile, auditory, spatial, or personal inattention or extinction to bilateral simulation in one or the sensory modalities. -: 2=Profound stefanie-inattention or stefanie-inattention to more than one modality; does not recognize own hand. 11. Responses: 0 Total Score: 0 Discharge - Discharge Clinical Impression: Intracranial hemorrhage Condition: Good Disposition: [facility] Referrals: GEOVANY STRATTON MD [Primary Care Provider] - Follow up as needed I personally performed the services described in the documentation, reviewed and edited the documentation which was dictated to the scribe in my presence, and it accurately records my words and actions.
[2019-07-08] MEDS ORDERED: MANNITOL IV ONE (21:30)
[2019-07-08 22:16] VITALS: BP 211/111
--- NOTE | 2019-07-09 05:49 | EKG REPORT ---
SEVERITY:- ABNORMAL ECG - VENTRICULAR-PACED COMPLEXES PVC'S : Confirmed by: Lakisha Cannon MD 09-Jul-2019 05:48:54
== END 2019-07-08 21:59 | disposition short-term general hospital (02) ==
LOC: ER 19:54
DX: I61.4 Nontraumatic intracerebral hemorrhage in cerebellum (principal); H53.2 Diplopia; R26.81 Unsteadiness on feet; R11.0 Nausea; I10 Essential (primary) hypertension; I25.10 Atherosclerotic heart disease of native coronary artery without angina pectoris; J44.9 Chronic obstructive pulmonary disease, unspecified
CPT/HCPCS: 93005; 99291; 96361; 96374; 96375; 36415; 82553; 82550; 85025; 85610; 85730; 80053; 84484; 70450; 93010; J0360; J2150; J2405; J7030; J3490